=== PATIENT | female | born 1980 | race Caucasian/White ===

== ENCOUNTER 2016-12-06 02:00 | Inpatient (IN) | payer MEDICAID ==
[~2016-12-06] VITALS: Ht 165.1 cm; Wt 104.3 kg
--- NOTE | ~2016-12-06 | HP ---
Unit #: [id number] #: [id number] Patient: TERRI MENCHACA [id number] [place] [address] [id number] I MR#: [id number] NAME: TERRI MENCHACA. ROOM: P185 Age: 36 Sex: F Admission Date: 12/06/2016 : 1980 Attending Physician: Vinayak Melara M.D. Admitting Physician: Vinayak Melara M.D. Primary Care Physician: Primary Care Physician No HISTORY AND PHYSICAL HISTORY OF PRESENT ILLNESS Terri is a 36 year old admitted to [facility] because of her drug use. She shoots heroin. She has had other admissions to this facility. PAST MEDICAL HISTORY 1. Long history of opioid abuse to include IV heroin. 2. Hepatitis C. 3. History of hepatitis B. 4. Morbid obesity. PAST SURGICAL HISTORY Nothing reported. ALLERGIES No known drug allergies. SOCIAL HISTORY Smokes one pack per day. Drinks alcohol on occasion. Admits to a long history of illicit substance abuse to include IV heroin. FAMILY HISTORY Medically noncontributory. REVIEW OF SYSTEMS CONSTITUTIONAL: No fever or chills. HEENT: Denies any sore throat, ear pain or runny nose. CARDIOVASCULAR: Denies chest pain, irregular heart rhythm or palpitations. CHEST: Denies shortness of breath or cough. No hemoptysis. GASTROINTESTINAL: Denies nausea, vomiting, diarrhea or chronic constipation. ENDOCRINE: Denies history of increased thirst or urination. No recent significant weight loss or gain. GENITOURINARY: Denies dysuria, frequency, or hematuria. SKIN: Denies any rashes. HEMATOLOGIC: Denies history of increased bleeding or bruising. MUSCULOSKELETAL: Denies any hot, swollen joints. No generalized muscle pain. NEUROLOGIC: Denies problems with vision or speech. No frequent, severe headaches. No numbness, tingling or weakness in any extremities. Denies loss of bladder or bowel control. CURRENT MEDICATIONS Unit #: [id number] #: [id number] Patient: TERRI MENCHACA Detox protocol. PHYSICAL EXAMINATION GENERAL: Alert, morbidly obese, very mel looking female, in no apparent distress. VITAL SIGNS: Blood pressure 130/84, heart rate 86, respirations 16, temperature 98.6. WEIGHT: 230 pounds. HEIGHT: 5'5". SKIN: Warm and dry without rash or lesion. HEENT: Normocephalic. TMs not viewed. Oral and nasal passages clear. Conjunctivae clear. Pupils equal, round and reactive to light and accommodation. Extraocular movements intact. NECK: Supple without lymphadenopathy or thyromegaly. HEART: Regular rate and rhythm without murmur. LUNGS: Clear. ABDOMEN: Soft, nontender. : Not done. EXTREMITIES: No evidence of cyanosis, clubbing or edema. Moves all extremities without focal deficit. NEUROLOGICAL: Grossly within normal limits. Cranial Nerves: II: Visual oliveira are intact. III, IV AND : Extraocular movements are intact. Pupils are equal, round and reactive to light. V: Facial sensation is grossly normal. VII: Facial movements and expression are normal. VIII: Auditory acuity grossly intact. IX, X: Uvula is midline. Phonation is normal. XI: Patient shrugs shoulders and turns head normally. XII: Tongue protrudes in the midline. Sensory and Motor Function: Sensory and motor sensation is grossly normal. Motor: moves all extremities well. Coordination: Gait is normal. Deep Tendon Reflexes: Intact. IMPRESSION Psychiatric admission RECOMMENDATIONS PSYCHIATRIC: Per psychiatrist. MEDICAL: I see no contraindications to participating in facility's activities. MEDICAL PROGNOSIS Good. MEDICAL CONDITION Stable. Dictated by... Anant BrennanAGabbie-Cassidy. for Paul Eid/dana TD: 12/06/2016 20:25 Unit #: [id number] #: [id number] Patient: TERRI MENCHACA JOB #: [id number] HISTORY AND PHYSICAL Page 1 of 1 X Radha Faustin HISTORY AND PHYSICAL
--- NOTE | ~2016-12-06 | CO ---
Unit #: [id number] #: [id number] Patient: TERRI MENCHACA [id number] [place] [address] [id number] I MR#: [id number] NAME: TERRI MENCHACA. ROOM: P185 Age: 36 Sex: F Admission Date: 12/06/2016 : 1980 Attending Physician: Vinayak Melara M.D. Primary Care Physician: Primary Care Physician No Consultation Date: 12/06/2016 CONSULTATION REPORT SUBJECTIVE Terri is a 36-year-old who spiked a fever to as high as 101.8. We have been asked to assess and treat. She complains of a severe sore throat and thick yellow mucus. Strep screen was negative. OBJECTIVE GENERAL: Alert, well nourished, in no apparent distress. VITAL SIGNS: Blood pressure 120/70, heart rate 80, respirations 16, T-max 101.8. HEENT: Normocephalic. TMs are dull bilaterally. Nasal passage is clear. Throat is very red with thick dark yellow postnasal drainage. NECK: Supple without lymphadenopathy. CHEST/LUNGS: Clear. ASSESSMENT Sinusitis. PLAN Levaquin 500 mg one p.o. daily x7 days. Dictated by... Radha Faustin PGabbieAGabbie-Cassidy. for Paul Eid/marilu TD: 12/14/2016 23:27 JOB #: [id number] CONSULTATION REPORT Page 1 of 1 X Radha Faustin CONSULTATION REPORT
--- NOTE | ~2016-12-06 | DS ---
Unit #: [id number] #: [id number] Patient: CHARMAINE MENCHACA [id number] [facility] [address] [place] [address] [id number] I MR#: [id number] NAME: CHARMAINE MENCHACA. ROOM: 85 Age: 36 Sex: F Admission Date: 12/06/2016 : 1980 Discharge Date: 12/08/2016 Attending Physician: Vinayak Melara M.D. Primary Care Physician: Primary Care Physician No DISCHARGE SUMMARY REASON FOR ADMISSION Needing detox. DIAGNOSTIC STUDIES Laboratory data is unremarkable except for urine drug screen positive for opiates. HOSPITAL COURSE The patient was admitted to inpatient unit on December 06, 2016 and discharged on December 08, 2016. The patient was treated on the inpatient unit with group therapy, individual therapy, medication management, detox protocol, and detox monitoring. The patient was responsive to treatment. Subsequently, the patient was discharged with the plan to followup in outpatient program. DISCHARGE DIAGNOSES Psychiatric: Lawrence I Major depressive disorder, recurrent, severe, F33.2. Opiate use disorder, severe, F11.20. Lawrence II Deferred. Lawrence III Hepatitis B. Hepatitis C. Upper respiratory tract infection. Lawrence IV Psychosocial stressors. Lawrence V INSTRUCTIONS TO PATIENT The patient is to follow up in outpatient clinic as well as social research assistant. DISCHARGE MEDICATIONS 1. Levaquin 500 mg five days for infection 2. Trazodone 100 mg at bedtime for sleep CONDITION AT DISCHARGE The patient is pleasant and cooperative, denied any psychotic symptoms or any suicidal ideation. PROGNOSIS Guarded. DIET AND ACTIVITY As tolerated. Unit #: [id number] #: [id number] Patient: CHARMAINE MENCHACA Dictated by... Paul Jara/vaughn TD: 12/09/2016 08:59 JOB #: [id number] DISCHARGE SUMMARY Page 1 of 1 X Vinayak Melara MD X DISCHARGE SUMMARY
--- NOTE | ~2016-12-06 | PN ---
Unit #: [id number] #: [id number] Patient: TERRI MENCHACA [id number] [facility] [address] [place] [address] [id number] I MR#: [id number] NAME: TERRI MENCHACA. ROOM: 85 Age: 36 Sex: F Admission Date: 12/06/2016 : 1980 Attending Physician: Vinayak Melara M.D. Admitting Physician: Vinayak Melara M.D. Primary Care Physician: Primary Care Physician Samantha DA SILVA PROGRESS NOTES DATE OF SERVICE 12/07/2016 DISCUSSION Terri Menchaca is a 36-year-old female seen on 12/07/2016. The patient interviewed, chart reviewed. Obtained information from nursing staff. The patient was compliant, cooperative. The patient tolerating medication fairly well, making progress. Complete Review of Systems: Unremarkable. MENTAL STATUS EXAMINATION General Appearance: The patient dressed casually. Attention span, concentration: Fair. Oriented in place and person. Mood and affect labile. Speech: Monotone. Thought process: [place]. The patient denied any thoughts of harming self or others or any psychotic symptom. Recent and remote memory: Poor. Insight and judgment: Poor. DIAGNOSES 1. Major depressive disorder, recurrent, severe. 2. Opiate use disorder, severe. ASSESSMENT/PLAN Advised to continue with current medication and therapeutic protocol. If needed, consider further adjustment of medication. Dictated by... Paul Jara/cirilo TD: 12/08/2016 07:15 JOB #: [id number] Unit #: [id number] #: [id number] Patient: TERRI MENCHACA REKHA PROGRESS NOTES Page 1 of 1 X Vinayak Melara MD PROGRESS NOTE
--- NOTE | ~2016-12-06 | PA ---
Unit #: [id number] #: [id number] Patient: CHARMAINE MENCHACA [id number] [facility] [address] [place] [address] [id number] I MR#: [id number] NAME: CHARMAINE MENCHACA. ROOM: P185 Age: 36 Sex: F Admission Date: 12/06/2016 : 1980 Date of Assessment: 12/06/2016 Attending Physician: Vinayak Melara M.D. Admitting Physician: Vinayak Melara M.D. Primary Care Physician: Primary Care Physician No PSYCHIATRIC ASSESSMENT INFORMANTS The patient reliability, fair informant and chart reliability, good. CHIEF COMPLAINT Opioid detox. HISTORY OF PRESENT ILLNESS Ms. Park is a 36-year-old female, presenting for detox. The patient reported using 0.5 g of heroin since June. The patient reported tired of using and needed to get some help, fearful of withdrawals. The patient reported occasional use of Xanax and heroin. The patient reported that she needs some help. The patient stated thoughts of ending her life because of her addiction. The patient feeling sad and depressed and reported she will be better off . Having passive suicidal ideation. The patient currently not working. 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 The patient has GED. Currently homeless. Needing inpatient admission at this time for psychiatric stabilization. PAST PSYCHIATRIC HISTORY Remarkable for history of previous treatment in 2016. FAMILY HISTORY AND SOCIAL HISTORY The patient currently homeless. Poor support system. No legal problems. MEDICAL HISTORY Remarkable for history of hepatitis B and hepatitis C. MEDICATION HISTORY None. ALLERGIES No known drug allergies. SUBSTANCE ABUSE HISTORY Tobacco use, age of onset 14; marijuana, age of onset 14; and opioid, age of onset 20. Longest period of sobriety 2 years, last period of sobriety in 2009. No history of blackout or IV drug use, but history of hepatitis and withdrawal symptoms such as abdominal cramping, muscle cramping, irritability, diarrhea, and withdrawal seizures. REVIEW OF SYSTEMS HEENT: Eyes, clear. Ears, nose, mouth, and throat; clear. CARDIOVASCULAR: Unremarkable. Unit #: [id number] #: [id number] Patient: CHARMAINE MENCHACA RESPIRATORY: Unremarkable. GI: Unremarkable. : Unremarkable. SKIN: Unremarkable. LYMPH NODE: Unremarkable. NEUROLOGIC: Unremarkable. ENDOCRINE: Unremarkable. HEMATOLOGIC: Unremarkable. ALLERGIC/IMMUNOLOGIC: Unremarkable. MUSCULOSKELETAL: Muscle strength and tone, no atrophy or abnormal movement. Gait unable to test. The patient having above-mentioned symptoms. MENTAL STATUS EXAMINATION CONSTITUTIONAL: Measurement of vital signs; temperature 101.8, heart rate 87, respiratory rate 16, and blood pressure 129/85. Height 5 feet 5 inches and weight 230 pounds. GENERAL APPEARANCE: The patient dressed casually. No facial deformity noted. MUSCULOSKELETAL: Please see above. PSYCHIATRIC EXAMINATION Description of speech; slow in volume and rate. Description of thought process, goal directed. Description of association, intact. Description of abnormal psychotic thinking; the patient denied any hallucinations or delusions, but sad, depressed, and withdrawal from substances. Description of the patient's judgment: Concerning everyday activity, poor. Social situation, poor. Concerning psychiatric condition, poor. Complete mental status examination; oriented in time, place, and person. Recent and remote memory, fair. Attention span and concentration, fair. Language, able to name object and repeat phrases. Fund of knowledge, fair. Vocabulary, intact. Mood and affect, sad and dysphoric. Insight and judgment, fair to poor. ASSETS AND LIABILITIES Assets, the patient is articulate and able to take care of her ADL. Liability, history of depression and substance abuse. ADMITTING DIAGNOSES Psychiatric: Major depressive disorder, recurrent, severe, F33.2 and opioid use disorder, severe, F11.20. Secondary diagnosis: Deferred. Medical diagnoses: Hepatitis B, hepatitis C, rule out upper respiratory tract infection. Stressors: Psychosocial stressors. ASSESSMENT AND PLAN 1. Supportive psychotherapy and psychoeducation provided to the patient. 2. Educated about benefits and side effects of medication and course and prognosis of illness. 3. Advised to start with detox protocol and detox monitoring. We will continue to follow. Also, ordered medical consultation and rapid strep screen as the patient is currently having fever and labs ordered. We will continue to follow. Treatment goal to attain euthymic mood, gain insight Unit #: [id number] #: [id number] Patient: CHARMAINE MENCHACA into her problem, and learn coping skills. DISCHARGE PLAN Plan to stabilize the patient and consider followup in outpatient program. ESTIMATED LENGTH OF STAY 5 to 7 days. Dictated by... Vinayak Paul Daniels TD: 12/06/2016 19:51 JOB #: [id number] PSYCHIATRIC ASSESSMENT Page 1 of 1 X Vinayak Melara MD PSYCHIATRIC ASSESSMENT
[2016-12-06 09:45] LABS: BASOPHIL% 0.3 % (0-2.5); EOSINOPHIL% 0.3 % (0.0-7.0); HEMATOCRIT 39.5 % (35.0-45.0); HEMOGLOBIN 13.6 gm/dL (12.0-16.0); LYMPHOCYTE# 0.7 X10e3 (1.0-3.5); MEAN CELL VOLUME 84.5 FL (83-96); MEAN CORPUSCULAR HEMOGLOBIN 29.1 PG (28-34); MEAN CORPUSCULAR HGB CONC 34.4 g/dL (30-36); MEAN PLATELET VOLUME 7.6 FL (6.5-11.5); MONOCYTE# 0.4 X10e3 (0-1.0); MONOCYTE% 9.5 % (3.0-12.0); NEUTROPHIL# 3.6 X10e3 (1.5-7.1); NEUTROPHIL% 75.9 % (40-75); PLATELET COUNT 163 X10e3 (140-420); RED BLOOD COUNT 4.68 X10e (3.90-5.30); RED CELL DISTRIBUTION WIDTH 12.8 % (11.0-15.5); WHITE BLOOD COUNT 4.7 X10e3 (4.0-10.5)
[2016-12-06 09:53] LABS: DIFF IND NO
[2016-12-06 12:32] LABS: URINE APPEARANCE CLEAR; URINE BILIRUBIN NEG (NEG); URINE BLOOD NEG (NEG); URINE COLOR YELLOW; URINE GLUCOSE NEG (NEG); URINE KETONE NEG (NEG); URINE LEUKOCYTE ESTERASE NEG (NEG); URINE NITRATE NEG (NEG); URINE PH 5.5 (5-8); URINE PROTEIN NEG (NEG); URINE SPECIFIC GRAVITY 1.011 (1.003-1.035); URINE UROBILINOGEN 0.2 MG/DL (NEG)
[2016-12-06 13:29] LABS: ALBUMIN SERUM 3.9 g/dL (3.5-5.0); BILIRUBIN,TOTAL 0.9 mg/dL (0.2-2.0); BUN/CREATININE RATIO 13.33; CALCIUM SERUM 8.6 mg/dL (8.4-10.2); CREATININE SERUM 0.6 mg/dL (0.6-1.4); GLOM FILT RATE Estimated 118.9 mL/min (>60); PROTEIN TOTAL SERUM 7.6 g/dL (6.0-8.3)
[2016-12-06 23:03] LABS: AMPHETAMINE NEG (NEG); BARBITURATES NEG (NEG); BENZODIAZEPINES NEG (NEG); COCAINE NEG (NEG); MARIJUANA NEG (NEG); OPIATES POS (NEG); TRICYCLIC ANTIDEPRESSANTS NEG (NEG); U METHADONE NEG (NEG)
== END 2016-12-08 13:00 | disposition home or self-care (01) | DRG 897 ==
LOC: P1E 04:35
PROVIDERS: Psychiatry & Neurology Psychiatry
PROC: HZ2ZZZZ Detoxification Services for Substance Abuse Treatment (ICD-10-PCS; principal; 2016-12-06)
DX: F11.20 Opioid dependence, uncomplicated (principal); F33.2 Major depressive disorder, recurrent severe without psychotic features; B19.10 Unspecified viral hepatitis B without hepatic coma; B19.20 Unspecified viral hepatitis C without hepatic coma; J06.9 Acute upper respiratory infection, unspecified
CPT/HCPCS: 80053; 80307; 81003; 84703; 85025; 86592; 87651